=== PATIENT | male | born 1990 | race Two or more races ===

== ENCOUNTER 2021-10-12 21:51 | Emergency (ER) | payer OTHER ==
[~2021-10-12] VITALS: Ht 182.9 cm; Wt 86.2 kg
--- NOTE | 2021-10-12 22:31 | NUR ---
AFTER BEING TRIAGED, PATIENT WAS PLACED IN HALLWAY DUE TO NO BEDS AVAILABLE IN THE ER AT THIS TIME.
--- NOTE | 2021-10-12 23:10 | NUR ---
DR ARNDT INTO EVAL PATIENT.
[2021-10-12] MEDS ORDERED: MECL-159 PO (23:24)
--- NOTE | 2021-10-12 23:25 | NUR ---
PLACED IN ROOM 1B.
[2021-10-12] MEDS ORDERED: MECLIZINE HCL 25 MG TABLET PO ONE (23:45)
--- NOTE | 2021-10-12 23:48 | NUR ---
Patient discharged to home in stable condition. Written and verbal after care instructions given. Patient verbalizes understanding of instructions. Stressed follow up or return to ER for worsening s/s.
[2021-10-12] MEDS ORDERED: MECLIZINE HCL 25 MG TABLET ONE (23:51)
[2021-10-12 23:52] VITALS: BP 138/78
== END 2021-10-12 23:53 | disposition home or self-care (01) ==
LOC: ER 22:01
DX: R42 Dizziness and giddiness (principal); H61.23 Impacted cerumen, bilateral
CPT/HCPCS: A4663; J8597